=== PATIENT | male | born 2000 | race Caucasian/White ===

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

== ENCOUNTER → 2019-03-24 | Day surgery (SDC) | payer BC ==
[~2019-03-24] MED LIST changes: +Bupivacaine 0.25% 10 ML SDV ONE; +Dexamethasone 4 MG/ML 5 ML MDV ONE; +EPINEPHrine 1 MG/1 ML Amp ONE; +EPINEPHrine 1 MG/ML 30 ML MDV ONE; +HYDROmorphone 0.5 MG/0.5 ML Syringe IVPUSH PRN; +HYDROmorphone 0.5 MG/0.5 ML Syringe ONE; +Ketorolac 30 MG/ML SDV ONE; +Lactated Ringers 1,000 ML ONE; +Lidocaine 1% 8 ML ONE; +Lidocaine 1%/Sod Bicarbonate in NS 8.4% 1 ML Syringe IDERM PRN; -Lidocaine 1%/Sod Bicarbonate in NS 8.4% 1 ML Syringe IV PRN; +Midazolam 1 MG/ML 2 ML SDV ONE; +Ondansetron 4 MG/2 ML SDV IVPUSH PRN; +Ondansetron 4 MG/2 ML SDV ONE; +Phenylephrine 1 MG in Sodium Chloride 0.9% 10 ML IV SCH; +Phenylephrine/Normal Saline 100 MCG/ML 10 ML Syringe ONE; +Propofol 200 MG/20 ML SDV ONE; +Ropivacaine 0.5% 5 MG/ML 30 ML SDV ONE; +ceFAZolin 1 GM Vial ONE; +diphenhydrAMINE 50 MG/ML SDV IVPUSH PRN; +ePHEDrine 50 MG/ML SDV IVPUSH PRN; +ePHEDrine/Normal Saline 25 MG/5 ML Syringe ONE; +fentaNYL 100 MCG/2 ML SDV IVPUSH PRN; +fentaNYL 250 MCG/5 ML SDV ONE
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
[2019-03-24] MEDS: Lactated Ringers 1,000 ML IV SCH ×2 (12:10→15:02)
--- NOTE | 2019-03-24 17:05 | CR ---
Right knee: Single fluoroscopic spot view was obtained of the right knee utilizing C-arm device. Comparison: Previous MRI right knee study of 03/04/19. Findings: Evidence of recent ACL repair. Fluoroscopy time is given as 9.5 seconds. Diagnostic code #2
--- NOTE | 2019-03-24 17:29 | PCM.POSTAN ---
POST ANESTHESIA ASSESSMENT - MENTAL STATUS Mental Status: Somnolent - VITAL SIGNS Vital Signs: Last Vital Signs Temp 36.7 C 03/24/19 11:50 Pulse 65 03/24/19 11:50 Resp 16 03/24/19 11:50 BP 118/63 03/24/19 11:50 Pulse Ox 98 03/24/19 11:50 - RESPIRATORY Respiratory Status: Respiratory Rate WNL, Airway Patent, O2 Saturation Stable, Supplemental Oxygen - CARDIOVASCULAR CV Status: Pulse Rate WNL, Blood Pressure Stable - GASTROINTESTINAL GI Status: No Symptoms - PAIN Pain Score: 0 - POST OP HYDRATION Hydration Status: Adequate & Stable - OBSERVATIONS Free Text/Narrative:: no anesthesia complications noted
--- NOTE | 2019-03-24 18:04 | PCM.SN ---
- Free Text/Narrative Note: Right selective femoral nerve block at the adductor canal for post-procedure pain control Time Out: 1742 Start: 1742 End: 1753 Chart reviewed. Consent signed. Questions answered. Appropriate monitors applied. Time out performed. Right mid-shaft femur evaluated with ultrasound. Scanning medially femur, I was able to identify the femoral artery in the adductor canal. The saphenous nerve was lateral to the artery. The skin was prepped lateral to the ultrasound probe with chlorahexadine. The 21ga 4 insulated block needle was inserted under direct ultrasound guidance into the adductor canal. 20mL of 0.5% ropivacaine with 1:200,000 epinephrine was injected cirmcumferentially about the nerve with intermittent negative aspiration every 5mL. Patient tolerated the procedure well. See pictures on progress note and vital signs on nurses notes. Block completed postoperatively. DOMINIK Stewart
--- NOTE | 2019-03-24 18:04 | PCM48HPAN ---
Post Anesthesia Note - EVALUATION WITHIN 48HRS OF ANESTHETIC Vital Signs in Normal Range: Yes Patient Participated in Evaluation: Yes Respiratory Function Stable: Yes Airway Patent: Yes Cardiovascular Function Stable: Yes Hydration Status Stable: Yes Pain Control Satisfactory: Yes Nausea and Vomiting Control Satisfactory: Yes Mental Status Recovered: Yes Vital Signs: Last Vital Signs Temp 36.7 C 03/24/19 17:50 Pulse 65 03/24/19 11:50 Resp 14 03/24/19 17:50 BP 124/67 03/24/19 17:50 Pulse Ox 97 03/24/19 17:50 - COMMENTS/OBSERVATIONS Free Text/Narrative:: no anesthesia complications noted
[2019-03-24 18:24] VITALS: BP 113/56
--- NOTE | 2019-03-29 13:54 | PCM.OPNOTE ---
- General Post-Op/Procedure Note Date of Surgery/Procedure: 03/24/19 Operative Procedure(s): right knee video arthroscopy with quad tendon autograft ACL reconstruction Pre Op Diagnosis: right knee acl deficiency Post-Op Diagnosis: Same Anesthesia Technique: General LMA, Local, Regional Block Primary Surgeon: Leonardo Ferrer Anesthesia Provider: Robert Goldsmith [employer] Salesperson: Marsha Rush [employer] Salesperson: Kim Shepherd EBL in mLs: 5 Complications: None Condition: Good
--- NOTE | 2019-03-29 15:16 | OR ---
DATE OF OPERATION: 03/24/2019 SURGEON: Leonardo Ferrer MD OPERATION PERFORMED: Right knee video arthroscopy with quadriceps tendon autograft, anterior cruciate ligament reconstruction. PREOPERATIVE DIAGNOSIS: Right knee anterior cruciate ligament deficiency. POSTOPERATIVE DIAGNOSIS: Right knee anterior cruciate ligament deficiency. ANESTHESIA: General LMA with local and regional femoral block. ANESTHESIA PROVIDER: Jakub Lopez. SLOT SERVICE SPECIALIST: Marsha Rush PA-C, and Kim Shepherd LPN. ESTIMATED BLOOD LOSS: 5 mL. COMPLICATIONS: None. CONDITION: Stable. DESCRIPTION OF PROCEDURE: The patient was identified in the preop holding area. Proper site was marked, identified by surgeon. The patient was taken back to the operating theater, where after adequate anesthesia, the patient's left lower extremity was placed in a well leg choe. Right lower extremity had a nonsterile tourniquet applied and was then sterilely prepped and draped in the usual sterile fashion after placing a C-clamp choe. Foot of bed was then lowered. OR wide time-out was performed. The patient received 2 g IV Ancef. At this time, right lower extremity was exsanguinated. Tourniquet was insufflated to 250 mmHg. Standard anterior lateral portal incision was made and scope trocar was introduced. The patient was noted to have a small effusion. There was no chondromalacia of the patellofemoral joint. Attention was turned to the medial compartment. With the use of a spinal needle, anteromedial portal was created. There was no chondromalacia or medial meniscus tear noted. There was complete anterior cruciate ligament tear off the femoral side and the notch. The lateral compartment showed no signs of chondromalacia or meniscus tear. Scope trocar was then removed. Incision was made at the superior pole of the patella. This was taken down to the quadriceps tendon. I was able to obtain a graft with a 9 mm parallel knife blade for the Ar[employer] quadriceps tendon autograft system. There, Whipstitch was placed in the last 2 cm of the distal portion of the graft and a cigar cutter was then used to cut the graft to 75 mm. This was taken back to the back table and was constructed for the ACL graft by Marsha Rush PA-C, and Kim Shepherd LPN, for placement of an Endobutton on the femoral side as well. While this was being completed on the back table, I cleaned out the old anterior cruciate ligament fibers from the notch. The guide for the tibial tunnel was then set at 55 degrees and the guide pin was placed in the center of the old anterior cruciate ligament. A 9 mm reamer was then used to drill a hole in the proximal tibia with good adequate length of the tibial tunnel. At this time, the flip cutter for the Ar[employer] flip cutting guide was then placed and a 9.5 was then reamed on the femoral side. There was good placement. Just roughly 2 to 3 mm of the posterior rim of the femoral condyle was remaining and this was drilled to 25 mm. Once the bony pieces were irrigated out of the knee, the graft was shuttled up through the knee. The Endobutton was flipped on the femoral cortex and was found to be in adequate position using C-arm fluoroscopy. The graft was then shuttled up through the tibia into the femoral tunnel. Tension was applied. The patient's knee was brought through a cycle range of motion while tension was held on the tibial side. A drill was then drilled for a 4.5 Kate screw. This was then applied with a washer. The suture limbs on the tibial side were then tied over the screw for tying over a post and the screw was then tightened. The patient had negative anterior drawer and Cindy's under direct visualization. 0 Vicryl was used deep on the quadriceps tendon. 2-0 Vicryl was used subcutaneously. Monocryl was used for the skin. The patient was placed in a hinged knee brace and a sterile soft dressing and sent to PACU in stable condition. JAI /[id number]
== END | disposition home or self-care (01) ==
LOC: JD.SDS 11:39
PROVIDERS: ATTEND Orthopaedic Surgery
DX: S83.511A Sprain of anterior cruciate ligament of right knee, initial encounter (principal); M25.461 Effusion, right knee; F17.220 Nicotine dependence, chewing tobacco, uncomplicated; G89.18 Other acute postprocedural pain; W55.22XA Struck by cow, initial encounter; Z88.0 Allergy status to penicillin; Z79.82 Long term (current) use of aspirin; Z79.899 Other long term (current) drug therapy
CPT/HCPCS: 29888; 64447; 76000; C1713; J0171; J0690; J1100; J1170; J1885; J2001; J2250; J2370; J2405; J2704; J2795; J3010; J3490; J7050; J7120; 01400; 64450

== ENCOUNTER → 2024-06-22 | Day surgery (SDC) | payer BC ==
[~2024-06-22] MED LIST changes: -Bupivacaine 0.25% 10 ML SDV ONE; +Clindamycin Phosphate in D5W 50 ML IV ONE; -Dexamethasone 4 MG/ML 5 ML MDV ONE; -EPINEPHrine 1 MG/1 ML Amp ONE; -EPINEPHrine 1 MG/ML 30 ML MDV ONE; -HYDROmorphone 0.5 MG/0.5 ML Syringe IVPUSH PRN; -HYDROmorphone 0.5 MG/0.5 ML Syringe ONE; -Ketorolac 30 MG/ML SDV ONE; -Lactated Ringers 1,000 ML ONE; -Lidocaine 1% 8 ML ONE; -Lidocaine 1%/Sod Bicarbonate in NS 8.4% 1 ML Syringe IDERM PRN; -Ondansetron 4 MG/2 ML SDV IVPUSH PRN; -Ondansetron 4 MG/2 ML SDV ONE; -Phenylephrine 1 MG in Sodium Chloride 0.9% 10 ML IV SCH; -Phenylephrine/Normal Saline 100 MCG/ML 10 ML Syringe ONE; -Ropivacaine 0.5% 5 MG/ML 30 ML SDV ONE; +Sodium Chloride 0.9% 10 ML Syringe FLUSH SCH; -ceFAZolin 1 GM Vial ONE; -diphenhydrAMINE 50 MG/ML SDV IVPUSH PRN; -ePHEDrine 50 MG/ML SDV IVPUSH PRN; -ePHEDrine/Normal Saline 25 MG/5 ML Syringe ONE; -fentaNYL 100 MCG/2 ML SDV IVPUSH PRN; +fentaNYL 100 MCG/2 ML SDV ONE; -fentaNYL 250 MCG/5 ML SDV ONE
[2024-06-22] MEDS: Lactated Ringers 1,000 ML IV SCH (10:40)
[2024-06-22] MEDS: Bupivacaine 0.25% 10 ML SDV ONE (13:15)
[2024-06-22 14:41] VITALS: BP 120/68; PULSE 74
== END | disposition home or self-care (01) ==
LOC: JD.SDS 10:24
PROVIDERS: ATTEND Orthopaedic Surgery
DX: T84.84XA Pain due to internal orthopedic prosthetic devices, implants and grafts, initial encounter (principal); F17.220 Nicotine dependence, chewing tobacco, uncomplicated; Z88.1 Allergy status to other antibiotic agents; Z79.899 Other long term (current) drug therapy
CPT/HCPCS: 20680; 76000; J0665; J0736; J2250; J2704; J3010; J7120